=== PATIENT | female | born 1965 | race Caucasian/White ===

== ENCOUNTER 2018-05-21 22:00 | Emergency (ER) | payer MEDICAID ==
[~2018-05-21] VITALS: Ht 160 cm; Wt 88.0 kg
[~2018-05-21 22:00] MED LIST: ALBU-136 IH; ASPI-1718 PO; DOCU-299 PO; FERR325E14 PO; IBUP-974 PO; METF500T PO; PANT40EC28; THEO200T22 PO
[2018-05-21 22:04] VITALS: BP 182/80
--- NOTE | 2018-05-21 22:06 | NUR ---
PT AMBULATORY TO ER LOBBY W/ STEADY GAIT IN STABLE CONDITION.
--- NOTE | 2018-05-21 22:51 | NUR ---
PT ambulated to bed 11.
--- NOTE | 2018-05-21 23:00 | NUR ---
PATIENT PRESENTS ER WITH C/O PAIN IN THE EARS BILATERAL, SORE THROAT, COUGH AND CONGESTION X 1 WEEK; PATIENT STATES PAIN OF 7/10 AT THIS TIME; PT IS A/OX4. VSS; PATIENT POSITIONED FOR COMFORT; HOB ELEVATED; BEDRAILS UP X2; BED DOWN. ER MD MADE AWARE OF PT STATUS.
[2018-05-21] MEDS ORDERED: AZITHROMYCIN 250 MG TAB PO ONE (23:20)
--- NOTE | 2018-05-21 23:35 | NUR ---
Patient discharged with v/s stable. Written and verbal after care instructions given and explained. Patient alert, oriented and verbalized understanding of instructions. Ambulatory with steady gait. All questions addressed prior to discharge. ID band removed. Patient advised to follow up with PMD. Rx of PROMETHAZINE AND AZITHROMYCIN WAS given. Patient educated on indication of medication including possible reaction and side effects. Opportunity to ask questions provided and answered.
[2018-05-21 23:40] VITALS: BP 180/82
== END 2018-05-21 23:35 | disposition home or self-care (01) ==
LOC: MED 22:00
DX: J06.9 Acute upper respiratory infection, unspecified (principal); J45.909 Unspecified asthma, uncomplicated; E11.9 Type 2 diabetes mellitus without complications; I10 Essential (primary) hypertension; K21.9 Gastro-esophageal reflux disease without esophagitis; Z88.2 Allergy status to sulfonamides; Z88.8 Allergy status to other drugs, medicaments and biological substances; Z79.1 Long term (current) use of non-steroidal anti-inflammatories (NSAID); Z79.84 Long term (current) use of oral hypoglycemic drugs
CPT/HCPCS: 87081; 99283

== ENCOUNTER 2018-11-05 13:22 | Emergency (ER) | payer MEDICAID ==
[~2018-11-05] VITALS: Ht 160 cm; Wt 83.9 kg
--- NOTE | 2018-11-05 13:27 | NUR ---
PT AMBULATED TO BED 01.
[2018-11-05 13:31] VITALS: BP 151/88
--- NOTE | 2018-11-05 13:31 | NUR ---
BIB SELF. AAO X4 C/O ABSCESS TO R INNER BUTTOCK X 4 DAYS. PT STATES BLOODY GREEN DRAINAGE FROM THE ABSCESS. RIGHT INNER BUTTOCKS, TENDER TO TOUCH. PT DENIES FEVER, N/V. PT AMBULATED WITH SLOW STEADY GAIT. HOB UP. BED SIDE RAILS UP X1. ON LOW BED POSITION, LOCKED. TO ER TO EVALUATE PT.
--- NOTE | 2018-11-05 13:53 | NUR ---
DR LEON AT BEDSIDE FOR PT EVALUATION
[2018-11-05] MEDS ORDERED: VANCOMYCIN 1,000 MG in DEXTROSE 5% 250 ML IV ONE (14:00)
[2018-11-05] MEDS ORDERED: NACL 0.9% 1,000 ML IV ONE (14:00)
[2018-11-05] MEDS ORDERED: LIDOCAINE 1% 500 MG/50 ML VIAL INJ SCH (14:00)
[2018-11-05] MEDS ORDERED: KETOROLAC 30 MG/ML VIAL IVP ONE (14:05)
[2018-11-05] MEDS ORDERED: VANCOMYCIN 1,000 MG VIAL ONE (14:17)
[2018-11-05] MEDS ORDERED: LIDOCAINE MPF 1% - 5 mL VIAL 5 ML ONE (14:18)
[2018-11-05 14:19] LABS: BASOPHILS % (AUTO) 0.5 % (0.0-2.0); EOSINOPHILS # (AUTO) 0.1 K/uL (0-0.4); EOSINOPHILS % (AUTO) 1.2 % (0.0-4.0); HEMATOCRIT 40.6 % (36-48); HEMOGLOBIN 13.7 g/dL (12.0-16.0); LYMPHOCYTES # (AUTO) 1.4 K/uL (2.5-16.5); LYMPHOCYTES % (AUTO) 15.6 % (20.5-51.1); MEAN CORPUSCULAR HEMOGLOBIN 28 pg (27-31); MEAN CORPUSCULAR HGB CONC 34 g/dL (33-37); MEAN CORPUSCULAR VOLUME 82.7 fL (80-94); MONOCYTES # (AUTO) 0.5 K/uL (0.8-1.0); MONOCYTES % (AUTO) 5.5 % (1.7-9.3); NEUTROPHILS # (AUTO) 6.7 K/uL (1.8-7.7); NEUTROPHILS % (AUTO) 77.2 % (42.2-75.2); PLATELET COUNT (AUTO) 133 K/uL (140-450); RED BLOOD CELL COUNT(AUTO) 4.91 MIL/uL (4.20-5.40); RED CELL DISTRIBUTION WIDTH 13.1 % (11.6-13.7); WHITE BLOOD COUNT (AUTO) 8.7 K/uL (4.8-10.8)
[2018-11-05 14:47] LABS: CARBON DIOXIDE 25.2 mmol/L (21-32); POTASSIUM 3.2 mmol/L (3.5-5.1)
--- NOTE | 2018-11-05 15:00 | NUR ---
RESIDENT DR MAE AT BEDSIDE FOR I&D PROCEDURE.
[2018-11-05] MEDS ORDERED: INSULIN REGULAR, HUMAN 100 UNIT/ML VIAL IVP ONE (15:25)
[2018-11-05] MEDS ORDERED: POTASSIUM CHLORIDE 10 MEQ TABER PO ONE (15:25)
[2018-11-05 16:15] VITALS: BP 138/82
--- NOTE | 2018-11-05 16:15 | NUR ---
Patient discharged with v/s stable. Written and verbal after care instructions given and explained. Patient alert, oriented and verbalized understanding of instructions. Ambulatory with steady gait. All questions addressed prior to discharge. ID band removed. Patient advised to follow up with PMD. Rx of BACTRIM DS, TRAMADOL HYDROCHLORIDE 50 MG, MOTRIN 800 MG given. Patient educated on indication of medication including possible reaction and side effects. Opportunity to ask questions provided and answered.
== END 2018-11-05 16:15 | disposition home or self-care (01) ==
LOC: MED 13:22
DX: L02.31 Cutaneous abscess of buttock (principal); I10 Essential (primary) hypertension; E11.65 Type 2 diabetes mellitus with hyperglycemia; J45.909 Unspecified asthma, uncomplicated; K21.9 Gastro-esophageal reflux disease without esophagitis; Z88.2 Allergy status to sulfonamides; Z79.82 Long term (current) use of aspirin; Z79.84 Long term (current) use of oral hypoglycemic drugs; Z79.1 Long term (current) use of non-steroidal anti-inflammatories (NSAID); Z88.0 Allergy status to penicillin
CPT/HCPCS: 10060; 36415; 80048; 81025; 82948; 85025; 87040; 96365; 96366; 96375; 99283; J1815; J1885; J2001; J3370; J7030